=== PATIENT | male | born 1985 | race Caucasian/White ===

== ENCOUNTER 2023-08-25 20:54 | Emergency (ER) | payer BC, MEDICAID | END 2023-08-25 22:38 | disposition home or self-care (01) | LOC: JP.ED 20:54 | DX: S93.402A Sprain of unspecified ligament of left ankle, initial encounter (principal); X50.0XXA Overexertion from strenuous movement or load, initial encounter; Y93.89 Activity, other specified | CPT/HCPCS: 73610-26-LT; 73610-LT; 99283 ==